=== PATIENT | female | born 1955 | race Caucasian/White ===

== ENCOUNTER 2019-04-19 19:15 | Observation (INO) | payer MEDICARE, OTHER ==
[~2019-04-19] VITALS: Ht 170.2 cm; Wt 61.2 kg
[~2019-04-19 19:15] MED LIST: ADVAIR 500/501 EA INH; ALBUTEROL1.25 MG/3; ATORVASTATIN CA20 MG PO; BENZONATATE100 MG PO; CETIRIZINE HCL10 MG; CLONAZEPAM0.5 MG PO; CLOPIDOGREL75 MG PO; FLUTICASONE PRO16 GM; GABAPENTIN300 MG PO; KLOR-CON 1010 MEQ; LASIX20 MG PO; LOSARTAN POTASS25 MG; METFORMIN HCL500 MG PO; MIRAPEX0.25 MG PO; MONTELUKAST SOD10 MG PO; OMEPRAZOLE40 MG; SPIRIVA18 MCG INH; [UNRECOGNIZED DRUG - OTHER]; [UNRECOGNIZED DRUG - OTHER] PO
[2019-04-19] MEDS ORDERED: METHYLPREDNISOLONE SOD SUCC 125 MG/2ML VIAL IV ONE (19:30)
--- NOTE | 2019-04-19 20:03 | Diagnostic Imaging Report ---
EXAMINATION: CHEST SINGLE (NOT PORTABLE) INDICATION: ^CHEST PAIN ^[id number] ^1952 ^Y COMPARISON: None FINDINGS: AP view TUBES and LINES: None. LUNGS: Lungs are well inflated. There is no evidence of pneumonia or pulmonary edema. PLEURA: No pleural effusion or pneumothorax. HEART AND MEDIASTINUM: The cardiomediastinal silhouette is unremarkable. BONES AND SOFT TISSUES: No acute osseous lesion. Soft tissues are unremarkable. UPPER ABDOMEN: No free air under the diaphragm. IMPRESSION: No acute thoracic abnormality. Signed by: Dr. Jama Eason MD on 04/19/2019 7:59 PM
[2019-04-19] MEDS ORDERED: ALBUTEROL/IPRATROPIUM 3 ML NEB NEB ONE (20:15)
--- NOTE | 2019-04-19 20:15 | NUR ---
MORENA, RT NOTIFIED AND AWARE OF STAT DUONEB TREATMENT.
--- NOTE | 2019-04-19 20:22 | NUR ---
MORENA, RT AT BEDSIDE FOR ADMINISTRATION OF DUONEB TX.
[2019-04-19 20:42] LABS: BASOPHILS % 0.5 % (0.0-1.0); EOSINOPHILS # (AUTO) 0.1 (0.0-0.4); EOSINOPHILS % 0.7 % (0.0-6.0); HEMATOCRIT 29.3 % (34.2-44.1); HEMOGLOBIN 8.1 g/dL (12.0-16.0); LYMPHOCYTES # (AUTO) 1.5 (1.0-3.2); LYMPHOCYTES % 18.1 % (18.0-39.1); MEAN CORPUSCULAR HEMOGLOBIN 21.4 pg (28-32); MEAN CORPUSCULAR HGB CONC 27.6 g/dL (31-35); MEAN CORPUSCULAR VOLUME 77.5 fL (81-99); MONOCYTES # (AUTO) 0.7 (0.2-0.8); MONOCYTES % 8.6 % (4.4-11.3); NEUTROPHILS # (AUTO) 5.8 (2.1-6.9); NEUTROPHILS % 71.9 % (38.7-80.0); PLATELET COUNT 208 x10e3/uL (140-360); RED BLOOD COUNT 3.78 x10e6/uL (3.6-5.1); RED CELL DISTRIBUTION WIDTH 20.2 % (11.7-14.4)
[2019-04-19 20:57] LABS: ALBUMIN 3.5 g/dL (3.5-5.0); ALBUMIN/GLOBULIN RATIO 0.9 (0.8-2.0); ANION GAP 14.5 mmol/L (8-16); CALCIUM 9.5 mg/dL (8.4-10.2); CREATININE, SERUM 1.08 mg/dL (0.57-1.11); POTASSIUM 4.5 mmol/L (3.5-5.1)
[2019-04-19 21:04] LABS: CREATINE KINASE MB 4.8 ng/mL (0-5.0)
[2019-04-19] MEDS ORDERED: ALBUTEROL SULF 0.083% NEB SOLN 3 ML NEB NEB PRN (21:15)
[2019-04-19 21:41] LABS: HYPOCHROMASIA MODERATE
[2019-04-19 21:44] LABS: MICROCYTOSIS MODERATE
[2019-04-19 21:46] LABS: SCHISTOCYTES FEW
--- OUTSIDE RECORDS SUMMARY | 2019-04-19 21:54 | XMS REPORT ---
Author Author [facility] Address Unknown Phone Unavailable Care Team Providers Care Take Down Inspector Name Role Phone AMI DARLINE Unavailable Unavailable Problems This patient has no known problems. Allergies, Adverse Reactions, Alerts This patient has no known allergies or adverse reactions. Medications This patient has no known medications. Results Test Description Test Time Test Comments Text Results Atomic Results Result Comments CHEST SINGLE (NOT PORTABLE) 2019-04-19 19:59:00 [place] [id number] Patient Name: CAM LITTLE MR #: [id number] : 1955 Age/Sex: 64/F Req #: [id number] Adm Physician: Ordered by: DARLINE MUELLER DO Report #: [id number] Location: ER Room/Bed: Procedure: [id number] DX/CHEST SINGLE (NOT PORTABLE) Exam Date: 04/19/19 Exam Time: 1949 REPORT STATUS: Signed EXAMINATION: CHEST SINGLE (NOT PORTABLE) INDICATION: CHEST PAIN 20190419 Y COMPARISON: None FINDINGS: AP view TUBES and LINES: None. LUNGS: Lungs are well inflated. There is no evidence of pneumonia or pulmonary edema. PLEURA: No pleural effusion or pneumothorax. HEART AND MEDIASTINUM: The cardiomediastinal silhouette is unremarkable. BONES AND SOFT TISSUES: No acute osseous lesion. Soft tissues are unremarkable. UPPER ABDOMEN: No free air under the diaphragm. IMPRESSION: No acute thoracic abnormality. Signed by: Dr. Jama Eason MD on 04/19/2019 7:59 PM Dictated By: JAMA EASON MD 56 Transcribed By: WILDA on 04/19/191958 COPY TO: DARLINE MUELLER DO
[2019-04-20] MEDS ORDERED: METHYLPREDNISOLONE SOD SUCC 40 MG/ML VIAL 1ML IV SCH ×3 (07:45→10:00)
[2019-04-20] MEDS: SALMETEROL/FLUTICASONE 500/50 INH SCH ×2 (07:55→19:57)
[2019-04-20] MEDS: TIOTROPIUM 18 MCG INH POWDER INH SCH (07:55)
[2019-04-20] MEDS: ALBUTEROL SULF 0.083% NEB SOLN 3 ML NEB NEB PRN ×2 (07:55→19:57)
[2019-04-20] MEDS ORDERED: DEXTROSE 50% SYRINGE 50 ML IV PRN (08:00)
[2019-04-20] MEDS ORDERED: CLONAZEPAM 0.5 MG TAB PO PRN (08:00)
[2019-04-20] MEDS ORDERED: ZOLPIDEM TARTRATE 5 MG TAB PO PRN (08:00)
--- NOTE | 2019-04-20 08:36 | Pre Op History & Physical ---
CHIEF COMPLAINT: Wheezing and dyspnea. HISTORY OF PRESENT ILLNESS: The patient is a 64-year-old woman. She has a history of COPD. She uses oxygen at home as well as Breo, Incruse, and a rescue inhaler. She notes worsening dyspnea and congestion. It was not relieved with nebulizers. She denies chest pain or fevers. PAST SURGICAL HISTORY: 1. Status post foot surgery. 2. Status post hysterectomy. PAST MEDICAL HISTORY: 1. COPD. 2. Hypertension. 3. Type 2 diabetes. SOCIAL HISTORY: The patient still smokes a little bit. She is not an active drinker. FAMILY HISTORY: Family history is remarkable for hypertension and diabetes. ALLERGIES: THE PATIENT HAS NO KNOWN DRUG ALLERGIES. REVIEW OF SYSTEMS: The patient is afebrile. The patient does not have any facial swelling. There is no neck pain. The patient has no sore throat. There is no chest pain. She is not having any cough or fevers. She does not complain of abdominal pain. There is no nausea or vomiting. There is no leg edema. PHYSICAL EXAMINATION: VITAL SIGNS: The patient is afebrile. The blood pressure is 99/50 and the saturation is 99%. Respiratory rate is 16. HEENT: Shows no facial swelling or erythema. CARDIAC: Reveals a regular rate and rhythm with a normal S1 and S2. There are no murmurs or rubs. LUNGS: Auscultation of lungs shows prolonged expiratory phase bilaterally. There is no wheezing. ABDOMEN: Soft, nontender. There is no rebound or guarding. EXTREMITIES: Show no leg edema or calf tenderness. There is no cyanosis or clubbing. SKIN: Shows no rashes. NEUROLOGICAL: Shows no focal abnormalities. LABORATORY DATA: White blood cell count is 8, hemoglobin is 8.1, and platelet count is 208. XUZ-bd-jsnkxrkstz ratio is normal. The other electrolytes are within normal limits. RADIOGRAPHIC DATA: Chest x-ray shows no acute disease. IMPRESSION: 1. Chronic obstructive pulmonary disease with acute exacerbation. 2. Hypertension. 3. Onx-bcvogqw-xeyeandtb diabetes. 4. Anemia secondary to chronic blood loss. PLAN: 1. Corticosteroids. 2. Bronchodilators. 3. Antibiotics. 4. GI evaluation for microcytic anemia. Franklin Way MD [facility]/MODGerry /[id number]
[2019-04-20] MEDS ORDERED: CLOPIDOGREL BISULFATE 75 MG TAB PO SCH (09:00)
[2019-04-20] MEDS: FUROSEMIDE 20 MG TAB PO SCH (09:10)
[2019-04-20] MEDS: METHYLPREDNISOLONE SOD SUCC 40 MG/ML VIAL 1ML IV SCH ×2 (09:10→21:09)
[2019-04-20] MEDS: DOXYCYCLINE 100MG/NS 100ML 100 ML IV SCH ×2 (09:10→22:02)
[2019-04-20] MEDS: GABAPENTIN 300 MG CAP PO SCH ×2 (09:10→17:38)
[2019-04-20] MEDS: METFORMIN HCL 500 MG TAB PO SCH ×2 (09:10→17:38)
[2019-04-20] MEDS: BENZONATATE 100 MG CAP PO SCH ×3 (09:10→21:09)
[2019-04-20] MEDS: LOSARTAN POTASSIUM 25 MG TAB PO SCH (09:10)
[2019-04-20] MEDS: MONTELUKAST SODIUM 10 MG TAB PO SCH (09:11)
[2019-04-20] MEDS: PANTOPRAZOLE SOD 40 MG TABEC PO SCH (09:11)
[2019-04-20] MEDS: FLUTICASONE PROPIONATE NASAL SPRAY NS SCH (09:21)
[2019-04-20] MEDS: PRAMIPEXOLE DIHYDROCHLORIDE 0.25 MG TAB PO SCH (09:21)
[2019-04-20] MEDS: INSULIN REGULAR, HUMAN 100 UNIT/1 ML 3ML VIAL SQ SCH ×3 (11:30→20:46)
[2019-04-20 17:27] VITALS: BP 106/52
[2019-04-20 17:40] VITALS: BP 106/52
[2019-04-20 17:50] VITALS: BP 106/52
[2019-04-20 19:33] LABS: FERRITIN 4.95 ng/mL (4.63-204.00)
[2019-04-20 20:37] VITALS: BP 133/68
[2019-04-20 20:42] LABS: FOLATE 15.7 ng/mL (7.0-15.4)
[2019-04-20] MEDS: ATORVASTATIN 40 MG TAB PO SCH (21:09)
[2019-04-20] MEDS ORDERED: SODIUM CHLORIDE 0.9% 250ML 250 ML ONE (21:57)
[2019-04-20 22:38] VITALS: BP 133/68
[2019-04-20 23:46] VITALS: BP 143/67
[2019-04-21] VITALS (7 sets, daily range): BP systolic 105–143; BP diastolic 56–60
[2019-04-21] MEDS ORDERED: BISACODYL 5 MG TAB EC PO ONE ×3 (00:30→01:00)
[2019-04-21 04:57] LABS: BASOPHILS % 0.1 % (0.0-1.0); EOSINOPHILS % 0.1 % (0.0-6.0); HEMATOCRIT 26.9 % (34.2-44.1); HEMOGLOBIN 7.5 g/dL (12.0-16.0); LYMPHOCYTES # (AUTO) 0.5 (1.0-3.2); LYMPHOCYTES % 3.5 % (18.0-39.1); MEAN CORPUSCULAR HEMOGLOBIN 21.4 pg (28-32); MEAN CORPUSCULAR HGB CONC 27.9 g/dL (31-35); MEAN CORPUSCULAR VOLUME 76.9 fL (81-99); MONOCYTES # (AUTO) 0.4 (0.2-0.8); MONOCYTES % 3.1 % (4.4-11.3); NEUTROPHILS # (AUTO) 12.8 (2.1-6.9); NEUTROPHILS % 92.6 % (38.7-80.0); PLATELET COUNT 213 x10e3/uL (140-360); RED CELL DISTRIBUTION WIDTH 20.3 % (11.7-14.4)
[2019-04-21] MEDS ORDERED: CITRATE OF MAGNESIA 300ML BOTTLE PO ONE ×2 (05:00→07:00)
[2019-04-21 05:23] LABS: ALBUMIN 3.2 g/dL (3.5-5.0); ANION GAP 14.7 mmol/L (8-16); CALCIUM 9.5 mg/dL (8.4-10.2); CREATININE, SERUM 1.07 mg/dL (0.57-1.11); POTASSIUM 4.7 mmol/L (3.5-5.1)
[2019-04-21 05:42] LABS: FERRITIN 5.66 ng/mL (4.63-204.00)
[2019-04-21] MEDS: FLUTICASONE PROPIONATE NASAL SPRAY NS SCH (06:07)
--- NOTE | 2019-04-21 07:22 | NUR ---
RECEIVED AM REPORT FROM RN AND MORNING ROUNDS DONE. PT IS ALERT RESTING IN BED, NO S/S OF DISTRESS. CALL LIGHT WITHIN REACH AND INSTRUCTED PT TO CALL NURSE FOR HELP
[2019-04-21] MEDS: METFORMIN HCL 500 MG TAB PO SCH ×2 (08:24→17:44)
[2019-04-21] MEDS: FUROSEMIDE 20 MG TAB PO SCH (08:25)
[2019-04-21] MEDS: LOSARTAN POTASSIUM 25 MG TAB PO SCH (08:25)
[2019-04-21] MEDS: PANTOPRAZOLE SOD 40 MG TABEC PO SCH (08:26)
[2019-04-21] MEDS: GABAPENTIN 300 MG CAP PO SCH ×2 (08:26→17:44)
[2019-04-21] MEDS: BENZONATATE 100 MG CAP PO SCH ×3 (08:26→21:31)
[2019-04-21] MEDS: MONTELUKAST SODIUM 10 MG TAB PO SCH (08:26)
[2019-04-21] MEDS: PRAMIPEXOLE DIHYDROCHLORIDE 0.25 MG TAB PO SCH (08:26)
[2019-04-21] MEDS: TIOTROPIUM 18 MCG INH POWDER INH SCH (08:34)
[2019-04-21] MEDS: SALMETEROL/FLUTICASONE 500/50 INH SCH (08:35)
[2019-04-21] MEDS: DOXYCYCLINE 100MG/NS 100ML 100 ML IV SCH ×2 (08:36→21:31)
[2019-04-21] MEDS: METHYLPREDNISOLONE SOD SUCC 40 MG/ML VIAL 1ML IV SCH ×2 (08:36→21:31)
[2019-04-21] MEDS: CYANOCOBALAMIN INJ 1,000 MCG/ML VIAL IM SCH (08:37)
[2019-04-21] MEDS: INSULIN REGULAR, HUMAN 100 UNIT/1 ML 3ML VIAL SQ SCH ×4 (09:00→21:00)
[2019-04-21] MEDS: IRON SUCROSE 100 MG in SODIUM CHLORIDE 0.9% 100 ML 100 ML IV SCH (10:44)
--- NOTE | 2019-04-21 11:07 | Progress Note ---
DATE: Pulmonary and Critical Care Progress Note SUBJECTIVE: The patient feels better. She has less dyspnea. She was seen by GI. She is awaiting EGD today. PHYSICAL EXAMINATION: VITAL SIGNS: Stable. HEENT: Shows no facial swelling or erythema. CARDIAC: Reveals a regular rate and rhythm with normal S1 and S2. There are no murmurs or rubs. LUNGS: Auscultation of lungs is clear breath sounds bilaterally. There is no wheezing. ABDOMEN: Soft, nontender. There is no rebound or guarding. EXTREMITIES: Show no leg edema or calf tenderness. There is no cyanosis or clubbing. SKIN: Shows no rashes. NEUROLOGICAL: Shows no focal abnormalities. IMPRESSION: 1. Chronic obstructive pulmonary disease with acute exacerbation. 2. Hypertension. 3. Wco-vaqysux-jugtnbaph diabetes. 4. Anemia secondary to chronic blood loss. PLAN: 1. Continue corticosteroids. 2. Continue antibiotics. 3. Continue bronchodilators. 4. Complete GI evaluation. MD SHARYN Bhatia/BRIAN /[id number]
--- NOTE | 2019-04-21 12:38 | NUR ---
OR NURSE IS AT THE BEDSIDE TO TAKE THE PT FOR EGD
[2019-04-21] MEDS ORDERED: PROPOFOL IV EMULSION 10 MG/ML 20 ML VIAL ONE (14:16)
--- NOTE | 2019-04-21 20:01 | Operative Report ---
DATE OF PROCEDURE: 04/21/2019 SURGEON: Edouard Hernandez MD PROCEDURE: Esophagogastroduodenoscopy with biopsies and esophageal dilatation. INDICATION FOR EGD: Heartburn, indigestion, dysphagia to solids, and anemia. MEDICATIONS: The patient was done under MAC, please see anesthesiologist's note. PROCEDURE IN DETAIL: With the patient in left lateral decubitus position, a flexible fiberoptic Olympus gastroscope was introduced into the esophagus under direct visualization without any difficulty. There was some patchy erythema noted in distal esophagus. Minute tongues of velvety red mucosa were noted to extend proximally from the GE junction. Biopsies were obtained to rule out Costa. The scope was then advanced with ease into the stomach traversing a small sliding hiatal hernia. Esophagus was dilated to size 52-Mauritanian Rivera. The scope was then advanced into the antrum. The mucosa overlying the antrum and the body revealed some patchy erythema and jqew-jb-lunwwsgh edema and biopsies were obtained and sent to stain for H pylori. Pylorus was of normal contour and shape, it was intubated with ease and the scope was advanced all the way to the second portion of the duodenum. Biopsies were obtained from the proximal second portion and duodenal bulb to rule out sprue. The scope was then withdrawn back into the stomach and retroflexed. Mucosa overlying the fundus appeared to be within normal limits. The previously described hiatal hernia was also noted in the retroflexed position. The scope was then straightened out, it was subsequently withdrawn. The patient tolerated the procedure well. IMPRESSION: 1. Distal esophagitis. 2. Rule out Costa esophagus. 3. Esophagus dilated to size 50-Mauritanian Rivera. 4. Small sliding hiatal hernia. 5. Gastritis biopsied. Biopsies sent to stain for Helicobacter pylori. 6. Rule out sprue. PLAN: Follow up histology. Initiate Protonix 40 mg one p.o. q.a.m. a.c. Start a GI soft diet. The patient will need to have her colon evaluated after being off Plavix for at least 4 to 5 days. Edouard Hernandez MD [facility] [place]/MODL /[id number] cc: Franklin Way MD
[2019-04-21] MEDS: ATORVASTATIN 40 MG TAB PO SCH (21:31)
[2019-04-22 00:54] VITALS: BP 143/70
[2019-04-22] MEDS: FLUTICASONE PROPIONATE NASAL SPRAY NS SCH (05:29)
[2019-04-22 05:55] VITALS: BP 146/67
[2019-04-22] MEDS: IRON SUCROSE 100 MG in SODIUM CHLORIDE 0.9% 100 ML 100 ML IV SCH (05:57)
--- NOTE | 2019-04-22 06:03 | NUR ---
IV to right AC leaking, IV removed, new 20G IV started to right forearm
[2019-04-22 08:10] VITALS: BP 144/58
[2019-04-22] MEDS: SALMETEROL/FLUTICASONE 500/50 INH SCH (08:46)
[2019-04-22] MEDS: TIOTROPIUM 18 MCG INH POWDER INH SCH (08:46)
[2019-04-22] MEDS: CYANOCOBALAMIN INJ 1,000 MCG/ML VIAL IM SCH (08:53)
[2019-04-22] MEDS: METFORMIN HCL 500 MG TAB PO SCH (08:53)
[2019-04-22] MEDS: GABAPENTIN 300 MG CAP PO SCH (08:54)
[2019-04-22] MEDS: FUROSEMIDE 20 MG TAB PO SCH (08:54)
[2019-04-22] MEDS: BENZONATATE 100 MG CAP PO SCH (08:54)
[2019-04-22] MEDS: MONTELUKAST SODIUM 10 MG TAB PO SCH (08:54)
[2019-04-22] MEDS: PRAMIPEXOLE DIHYDROCHLORIDE 0.25 MG TAB PO SCH (08:54)
[2019-04-22] MEDS: LOSARTAN POTASSIUM 25 MG TAB PO SCH (08:54)
[2019-04-22 08:55] VITALS: BP 144/58
--- NOTE | 2019-04-22 10:49 | NUR ---
Discharge instructions and prescriptions given to the patient, she verbalized understanding. IV to the right FA was removed with tip intact. Patient has her own home 02 tank here for ride home.
--- NOTE | 2019-04-22 19:51 | Discharge Summary ---
DISCHARGE DIAGNOSES: 1. Chronic obstructive pulmonary disease with acute exacerbation. 2. Anemia secondary to chronic blood loss. 3. Eal-nsdotqw-afqzhqeqx diabetes. DISCHARGE MEDICATIONS: 1. Mirapex 0.25 mg p.o. at bedtime. 2. Omeprazole 40 mg p.o. q.a.m. 3. Montelukast 10 mg p.o. daily. 4. Gabapentin 300 mg p.o. b.i.d. 5. Lasix 20 mg p.o. daily. 6. Plavix 75 mg p.o. daily. 7. Clonazepam 0.5 mg p.o. q.12 p.r.n. 8. Breo 200/4.5, one puff q.a.m. 9. Incruse 62.5 mcg one puff q.a.m. 10. Albuterol rescue inhaler 2 puffs as needed. 11. Prednisone taper starting at 30 mg a day. CONSULTING PHYSICIAN: Edouard Hernandez MD. PROCEDURES: 1. Upper endoscopy that showed gastritis and esophagitis. 2. Chest x-ray that showed no acute disease. HISTORY OF PRESENT ILLNESS: The patient is a 64-year-old woman. She has a history of COPD. She uses oxygen at home as well as Breo, Incruse, and rescue inhaler. She came in complaining of worsening dyspnea and congestion. It was not relieved with nebulizers. HOSPITAL COURSE: The patient was admitted. She received IV Solu-Medrol along with antibiotics and bronchodilators. She improved with this. She was also found to have a low hemoglobin. She was evaluated by GI and had an upper endoscopy. The upper endoscopy showed some esophagitis and gastritis. The patient was started on omeprazole. DISPOSITION: The patient will be discharged home. She will follow up with Dr. Jefe Marcus as well as Dr. Edouard Hernandez. MD SHARYN Bhatia/YUL /[id number]
== END 2019-04-22 11:23 | disposition home or self-care (01) ==
LOC: ER 19:15 → ERHOLD 21:51 → MED/SURG2 04-20 16:33
PROVIDERS: ADMIT Internal Medicine Critical Care Medicine; ATTEND Internal Medicine Critical Care Medicine
DX: J44.1 Chronic obstructive pulmonary disease with (acute) exacerbation (principal); I10 Essential (primary) hypertension; E11.9 Type 2 diabetes mellitus without complications; D50.0 Iron deficiency anemia secondary to blood loss (chronic); Z99.81 Dependence on supplemental oxygen; Z72.0 Tobacco use; Z83.3 Family history of diabetes mellitus; Z82.49 Family history of ischemic heart disease and other diseases of the circulatory system; K20.9 Esophagitis, unspecified; K44.9 Diaphragmatic hernia without obstruction or gangrene; K29.70 Gastritis, unspecified, without bleeding; R13.10 Dysphagia, unspecified; Z88.0 Allergy status to penicillin; Z88.2 Allergy status to sulfonamides; Z91.041 Radiographic dye allergy status
CPT/HCPCS: 36415 ×4; 43239; 43450; 71045; 80053 ×2; 82550; 82553; 82607; 82728 ×2; 82746; 82948 ×3; 83540 ×2; 83880; 84466 ×2; 84484; 85025 ×2; 85045; 88305; 88312; 93005; 94640 ×2; 94664 ×3; 99284; G0378 ×4; J1756 ×2; J1817; J2704; J2920 ×2; J2930; J3420 ×2; J7050; S0164 ×2

== ENCOUNTER 2019-04-26 12:32 | Emergency (ER) | payer MEDICARE ==
[~2019-04-26] VITALS: Ht 170.2 cm; Wt 61.2 kg
[2019-04-26] MEDS ORDERED: METHYLPREDNISOLONE SOD SUCC 125 MG/2ML VIAL IV STA (13:39)
[2019-04-26 13:47] LABS: BASOPHILS % 0.2 % (0.0-1.0); EOSINOPHILS # (AUTO) 0.1 (0.0-0.4); EOSINOPHILS % 0.9 % (0.0-6.0); HEMATOCRIT 34.8 % (34.2-44.1); HEMOGLOBIN 9.7 g/dL (12.0-16.0); LYMPHOCYTES # (AUTO) 1.3 (1.0-3.2); LYMPHOCYTES % 14.2 % (18.0-39.1); MEAN CORPUSCULAR HEMOGLOBIN 22.2 pg (28-32); MEAN CORPUSCULAR HGB CONC 27.9 g/dL (31-35); MEAN CORPUSCULAR VOLUME 79.6 fL (81-99); MONOCYTES # (AUTO) 0.7 (0.2-0.8); MONOCYTES % 7.9 % (4.4-11.3); NEUTROPHILS # (AUTO) 6.8 (2.1-6.9); NEUTROPHILS % 76.5 % (38.7-80.0); PLATELET COUNT 288 x10e3/uL (140-360); RED BLOOD COUNT 4.37 x10e6/uL (3.6-5.1); RED CELL DISTRIBUTION WIDTH 21.9 % (11.7-14.4)
[2019-04-26 13:51] LABS: BILIRUBIN,URINE NEGATIVE (NEGATIVE); CLARITY,URINE CLEAR (CLEAR); COLOR,URINE YELLOW (YELLOW); KETONES,URINE NEGATIVE (NEGATIVE); LEUKOCYTE ESTERASE ,URINE NEGATIVE (NEGATIVE); NITRITE,URINE NEGATIVE (NEGATIVE); PROTEIN,URINE DIPSTICK NEGATIVE (NEGATIVE); URINE UROBILINOGEN 0.2 mg/dL (0.2 - 1)
--- NOTE | 2019-04-26 13:54 | Diagnostic Imaging Report ---
Frontal and lateral views of the chest - 3 images HISTORY: Shortness of breath, history of smoking COMPARISON: Chest radiograph April 19, 2019 DISCUSSION: Bilateral nipple shadows. Overlying monitoring leads and tubes. Lungs: The lungs are hyperinflated, associated bibasilar atelectasis, left greater than right. No evidence of a consolidative pneumonia or pulmonary alveolar edema. Pleura: No pleural effusion or pneumothorax. Heart and mediastinum: The cardiomediastinal silhouette appear(s) unremarkable. Bones and soft tissues: Appear unremarkable. IMPRESSION: Findings compatible with obstructive lung disease. Signed by: Dr. Margarito Wright D.O., M.M.M. on 04/26/2019 1:50 PM
[2019-04-26 14:04] LABS: ALANINE AMINOTRANSFERASE 22 IU/L (0-55); ALBUMIN 3.8 g/dL (3.5-5.0); ALBUMIN/GLOBULIN RATIO 1.1 (0.8-2.0); ALKALINE PHOSPHATASE 92 IU/L (40-150); ANION GAP 14.2 mmol/L (8-16); BLOOD UREA NITROGEN 9 mg/dL (7-26); BUN/CREATININE RATIO 12 (6-25); CALCIUM 9.7 mg/dL (8.4-10.2); CARBON DIOXIDE 29 mmol/L (22-29); CHLORIDE 101 mmol/L (98-107); CREATINE KINASE 108 IU/L (29-168); CREATININE, SERUM 0.78 mg/dL (0.57-1.11); EST GLOMERULAR FILTRATION RATE > 60 ML/MIN (60-); GLUCOSE 107 mg/dL (74-118); POTASSIUM 4.2 mmol/L (3.5-5.1); SODIUM 140 mmol/L (136-145)
[2019-04-26 14:08] LABS: BACTERIA,URINE RARE /HPF; EPITHELIAL CELLS,URINE FEW /LPF; RBC,URINE 0-5 /HPF (0-5); WBC,URINE (MAN) 0-5 /HPF (0-5)
[2019-04-26 15:00] LABS: INR 0.87; PARTIAL THROMBOPLASTIN TIME 26.2 seconds (23.8-35.5); PROTHROMBIN TIME 12.3 seconds (11.9-14.5)
[2019-04-26 16:39] LABS: EOSINOPHILS % (MANUAL) 2 % (0-7); HYPOCHROMASIA MARKED; LYMPHOCYTES % (MANUAL) 15 % (19-48); MONOCYTES % (MANUAL) 8 % (3.4-9.0); NEUTROPHILS % (MANUAL) 75 % (40-74); PLATELET ESTIMATE ADEQUATE; PLATELET MORPHOLOGY COMMENT NORMAL; RBC MORPHOLOGY COMMENT ABNORMAL
== END 2019-04-26 16:14 | disposition home or self-care (01) ==
LOC: ER 12:36
DX: R06.00 Dyspnea, unspecified (principal); R05 Cough; J44.1 Chronic obstructive pulmonary disease with (acute) exacerbation
CPT/HCPCS: 36415; 71046; 80053; 81001; 82550; 82553; 84484; 85025; 85610; 85730; 93005; 99284